=== PATIENT | male | born 1985 | race Caucasian/White ===

== ENCOUNTER 2016-10-15 15:33 | Emergency (ER) | payer SELFPAY ==
[~2016-10-15] VITALS: Ht 177.8 cm; Wt 69.9 kg
--- NOTE | 2016-10-15 16:02 | Emergency Room Report ---
History of Present Illness General Chief Complaint: Medical Clearance Source: Patient Present Illness HPI 31 YO Male presents to the ED for medical clearance for incarceration. PT C/O Right hip pain and swelling, penile and scrotal rash with lesions in addition to multiple abrasions with erythema and possible infections. pt reports heroin use, and denies "shooting up in the hip" pt. states he only shoots in his arms. denies fevers, chills. last use was this a.m. denies trauma or fall. Pt. also reports genital /penile rash x 1 week. denies hx of STD's and reports unprotected intercourse with only one female whom is his partner. pt. denies dysuria, hematuria. pt reprots burning sensation but denies pain. reports itching as well. pt. is a poor historian and poorly cooperative with HPI and ROS questions and does not provide great detail. Allergies: Coded Allergies: AMOXICILLIN (Verified Allergy, Unknown, 10/15/16) PENICILLINS (Unverified Allergy, Unknown, 10/15/16) Uncoded Allergies: PENICILLIN (Allergy, Unknown, 10/15/16) Patient History Past Medical History: see triage record Past Surgical History: none Pertinent Family History: none Reviewed Nursing Documentation: PMH: Agreed, PSxH: Agreed Nursing Documentation-PMH Past Medical History: No History, Except For Review of Systems All Other Systems: limited - Pt is a poor historian Physical Exam Vital Signs Date Time Temp Pulse Resp B/P Pulse Ox O2 Delivery O2 Flow Rate FiO2 10/15/16 15:53 98.2 86 16 131/83 99 Room Air Medical Decision Making PA Attestation Dr. Diana is my supervising Physician whom patient management has been discussed with. Diagnostic Impression: Primary Impression: Genital herpes Qualified Codes: A60.01 - Herpesviral infection of penis Additional Impressions: Cellulitis Qualified Codes: L03.90 - Cellulitis, unspecified Hip hematoma, right Qualified Codes: S70.01XA - Contusion of right hip, initial encounter ER Course Pt. presents to the ED for medical clearance for incarceration. PT C/O Right hip pain and swelling, penile and scrotal rash with lesions in addition to multiple abrasions with erythema and possible infections. Pt. 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 Ddx considered but are not limited to Head Trauma, RI, ACS, SI/HI, URI, SAH, Fractures, Dislocations, Tazer barbs, Abrasions. Vital signs: are WNL, pt. is afebrile H&PE are most consistent with: Genital herpes outbreak, cellulitis about multiple skin abrasions, and ST swelling of the right hip ORDERS: -CT Right Hip No-Contrast: Subcutaneous mass lateral aspect right hip with stranding soft tissue swelling and edema overlying skin thickening. This is nonspecific and is not further characterizable, in part due to lack of IV contrast. Extension of process into subjacent musculature not obvious, but not entirely excludable. Diagnostic possibilities include hematoma, phlegmon, abscess, less likely neoplasm.-- Per official radiology report. ED INTERVENTIONS: -Needle Aspiration of the right hip: return of moderate amount of dark red blood , no pus- consistent with ST hematoma. DISCHARGE: At this time pt. is stable for d/c to law enforcement. Will provide printed patient care instructions, and any necessary prescriptions. Care plan and follow up instructions have been discussed with the patient prior to discharge. Last Vital Signs Date Time Temp Pulse Resp B/P Pulse Ox O2 Delivery O2 Flow Rate FiO2 10/15/16 15:53 98.2 86 16 131/83 99 Room Air Disposition: D/C TO LAW [facility]NF[facility]CEMENT IN [facility] Condition: Stable Scripts Doxycycline Hyclate* (VIBRAMYCIN*) 100 Mg Capsule 100 MG ORAL EVERY 12 HOURS for 7 Days, #14 CAP 0 Refills Prov: Demetrice Mosley 10/15/16 Acyclovir* (ACYCLOVIR*) 400 Mg Tablet 400 MG ORAL QID for 7 Days, #28 TAB Prov: Demetrice Mosley 10/15/16 Referrals: NOT CHOSEN IPA/MD,REFERRING (PCP) Departure Forms: Prison Clearance Patient Instructions: Cellulitis, Genital Herpes Additional Instructions: Take medications as directed. Follow up with PCP in 3-5 days Return sooner to ED if new symptoms occur, or current symptoms become worse. - Please note that this Emergency Department Report was dictated using [employer] analyst technology software, occasionally this can lead to erroneous entry secondary to interpretation by the dictation equipment. Demetrice Mosley Oct 15, 2016 16:02
[2016-10-15 16:09] VITALS: BP 129/80
[2016-10-15] MEDS ORDERED: Lidocaine 1% 10mg/ml/Epi 0.005mg/ml 30ml vial INJ ONE (18:00)
[2016-10-15] MEDS ORDERED: VIBRAMYCIN100 MG ORAL (18:20)
[2016-10-15] MEDS ORDERED: ACYCLOVIR400 MG ORAL (18:20)
[2016-10-15] MEDS ORDERED: Azithromycin 250mg tab ORAL ONE (18:30)
[2016-10-15 18:42] VITALS: BP 125/82
[2016-10-15 18:44] VITALS: BP 125/82
--- NOTE | 2016-10-16 10:47 | Diagnostic Imaging Report ---
Indications: Right hip pain and swelling Technique: Continuous helical CT imaging of the pelvis and right hip was performed with automatic exposure control on a Siemens sensation [address] scanner. Axial, coronal, sagittal images reconstructed at 3 mm slice thickness. No IV contrast administered per requesting physician's order, despite no contraindications listed in either submitted clinical data or tech note. CTDI volume(s): 10 mGy Total DLP: 299 mGy-cm Findings: Comparison: None Lack of IV contrast limits evaluation of soft tissue structures. Circumscribed but poorly marginated, heterogeneous multilobulated masslike density is present in the swollen subcutaneous soft tissues over the lateral aspect of the right hip joint. It measures approximately 7 x 4 x 7.5 cm. Contains foci of lower and higher attenuation. It is surrounded by significant stranding. Overlying skin is thickened. No associated gas. Involvement of the underlying muscular compartments not excludable. As the stranding throughout remaining subcutaneous soft tissues. No underlying fracture, dislocation, joint space widening, lytic destruction, periosteal reaction, or other acute skeletal/articular changes demonstrated. Prominent lymph nodes are present in both inguinal regions measuring up to 3.5 cm bilaterally. IMPRESSION: Subcutaneous mass lateral aspect right hip with stranding soft tissue swelling and edema overlying skin thickening. This is nonspecific and is not further characterizable, in part due to lack of IV contrast. Extension of process into subjacent musculature not obvious, but not entirely excludable. Diagnostic possibilities include hematoma, phlegmon, abscess, less likely neoplasm. Bilateral inguinal adenopathy--inflammatory versus neoplastic No evidence of underlying skeletal/articular abnormality Written preliminary report placed in PACS 10/15/2016 at 1733
== END 2016-10-15 18:44 ==
LOC: EMR 15:54
DX: A60.01 Herpesviral infection of penis (principal); L03.90 Cellulitis, unspecified; M25.551 Pain in right hip; F11.90 Opioid use, unspecified, uncomplicated; R22.41 Localized swelling, mass and lump, right lower limb; R59.0 Localized enlarged lymph nodes; Z88.0 Allergy status to penicillin
CPT/HCPCS: 99284